=== PATIENT | female | born 1955 | race Caucasian/White ===

== ENCOUNTER 2016-09-23 11:21 | Emergency (ER) | payer BC ==
[~2016-09-23 11:21] MED LIST: ASA325 MG PO; MACROBID100 MG PO; SEROQUEL25 MG PO; SURFAK DPS240 MG PO; TYLENOL DPS325 MG PO
--- NOTE | 2016-09-27 14:46 | ER ---
ADMIT: 09/23/2016 RM/LOC: ER [facility] MR#: [id number] [address] [address] LOLIS HUSSEIN [address] [place] [address] Emergency Room Report SEX: F AGE: 61 : 1955 DATE: 09/23/2016 ADDENDUM: CHIEF COMPLAINT: Right knee pain. HISTORY OF PRESENT ILLNESS: This is a 61-year-old female, who was going to actually an eye clinic. She tripped outside and fell onto her right knee. She was not able to get up on her own and was brought in by EMS to the ER. An x- ray was done of her right knee, it is negative for any fracture over-read by Dr. Yi. Also, did a chest x-ray because she was complaining of right-sided chest pain. X-ray was done and it is negative for any rib fractures or pneumothorax. I am setting her up with a knee mobilizer and crutches, having her follow up Dr. Ventura if her pain does not improve by Sunday. CLINICAL IMPRESSION: 1. Contusion to right knee. 2. Contusion to right side of chest. NAVIN Seymour / Hubert Yi MD / cierral JOB #: [id number] CC: Hubert Yi MD, Attending Physician Raman Ibarra MD, Family Physician
[2016-12-08] MEDS ORDERED: ULTRAM DPS50 MG PO (16:22)
[2017-02-02] MEDS ORDERED: CALTRATE-600 W600 MG PO (08:23)
[2017-02-02] MEDS ORDERED: LAMISIL250 MG PO (08:24)
[2017-02-02] MEDS ORDERED: ZESTORETIC 20/11 TAB PO (08:24)
[2017-02-02] MEDS ORDERED: MULTIPLE VITAM1 EACH PO (08:25)
[2017-02-02] MEDS ORDERED: SENOKOT-S TABL1 EACH PO (08:25)
[2017-02-02] MEDS ORDERED: XARELTO10 MG PO (08:25)
[2017-02-02] MEDS ORDERED: RESTASIS1 EACH OU (08:26)
[2017-02-02] MEDS ORDERED: FLEXERIL DPS5 MG PO (08:27)
[2017-02-02] MEDS ORDERED: FOSAMAX70 MG PO (08:28)
[2017-02-02] MEDS ORDERED: PRILOSEC DPS20 MG PO (08:28)
[2017-02-02] MEDS ORDERED: ZYPREXA10 MG PO (08:28)
[2017-02-02] MEDS ORDERED: MICRO-K DPS8 MEQ PO (08:28)
[2017-02-02] MEDS ORDERED: BENEFIBER1 EAC1 PO (08:29)
[2017-02-02] MEDS ORDERED: MIRALAX PACKET17 GM PO (08:29)
[2017-02-02] MEDS ORDERED: TYLENOL EXTRA500 M1 PO (08:29)
[2017-02-02] MEDS ORDERED: MOBIC15 MG PO (08:29)
[2017-02-02] MEDS ORDERED: COLACE-DPS100 MG PO (08:30)
[2017-02-02] MEDS ORDERED: METAMUCIL SF P3.4 GM PO (08:30)
[2017-02-02] MEDS ORDERED: NORCO 5-325 TA1 EACH PO (08:31)
[2017-02-02] MEDS ORDERED: CALCIUM + VITA1 EACH PO (08:31)
== END 2016-09-23 14:40 | disposition home or self-care (01) ==
LOC: ER 11:21
PROC: 2W3QX1Z Immobilization of Right Lower Leg using Splint (ICD-10-PCS; principal; 2016-09-23)
DX: S20.211A Contusion of right front wall of thorax, initial encounter (principal); S80.01XA Contusion of right knee, initial encounter; Z23 Encounter for immunization; Z88.2 Allergy status to sulfonamides; Z88.8 Allergy status to other drugs, medicaments and biological substances; Z79.899 Other long term (current) drug therapy; I10 Essential (primary) hypertension; F41.9 Anxiety disorder, unspecified; Z90.49 Acquired absence of other specified parts of digestive tract; W01.0XXA Fall on same level from slipping, tripping and stumbling without subsequent striking against object, initial encounter; Y92.481 Parking lot as the place of occurrence of the external cause

== ENCOUNTER → 2016-10-30 | Outpatient (CLI) | payer BC ==
[~2016-10-30] MED LIST changes: +BENEFIBER1 EAC1 PO; +CALCIUM + VITA1 EACH PO; +CALTRATE-600 W600 MG PO; +COLACE-DPS100 MG PO; +FLEXERIL DPS5 MG PO; +FOSAMAX70 MG PO; +LAMISIL250 MG PO; +METAMUCIL SF P3.4 GM PO; +MICRO-K DPS8 MEQ PO; +MIRALAX PACKET17 GM PO; +MOBIC15 MG PO; +MULTIPLE VITAM1 EACH PO; +NORCO 5-325 TA1 EACH PO; +PRILOSEC DPS20 MG PO; +RESTASIS1 EACH OU; +SENOKOT-S TABL1 EACH PO; +TYLENOL EXTRA500 M1 PO; +ULTRAM DPS50 MG PO; +XARELTO10 MG PO; +ZESTORETIC 20/11 TAB PO; +ZYPREXA10 MG PO
== END | disposition home or self-care (01) ==
LOC: PTH.S 09:46
DX: Z01.818 Encounter for other preprocedural examination (principal); M17.12 Unilateral primary osteoarthritis, left knee; I10 Essential (primary) hypertension; R94.31 Abnormal electrocardiogram [ECG] [EKG]; I49.3 Ventricular premature depolarization; I49.9 Cardiac arrhythmia, unspecified; Z79.899 Other long term (current) drug therapy

== ENCOUNTER 2017-01-23 21:28 | Inpatient (IN) | payer BC ==
[~2017-01-23] VITALS: Ht 172.7 cm; Wt 125.0 kg
--- NOTE | ~2017-01-23 | CO ---
ADMIT: 01/23/2017 RM/LOC: 528 [facility] MR#: [id number] [address] [facility] [address] [place] [id number] LOLIS HUSSEIN [address] [place] [address] Consultation Report SEX: F AGE: 61 : 1955 Corrected: 01/24/2017 1122 njv DATE OF CONSULTATION: 01/23/2017 ATTENDING PHYSICIAN: Raman Ibarra CONSULTING PHYSICIAN: Art Santana MD CHIEF COMPLAINT: Bilateral ankle pain. HISTORY OF PRESENT ILLNESS: The patient is a 61-year-old, white female, who is 3 months status post left total knee arthroplasty. She ate dinner tonight and ate about 8:30. Her left knee buckled on her and she landed on both her ankles. She was brought to the ER with complaints of ankle pain and deformity. PAST MEDICAL HISTORY: Significant for multiple medical problems and high blood pressure. She has had again bilateral total knee arthroplasty. The last one was approximately 3 months ago. She is also status post knee arthroscopy, rotator cuff repair, and right total knee arthroplasty. She had history of hypertension, cardiac arrhythmia, GERD, and depression. MEDICATIONS: 1. Terbinafine. 2. Alendronate. 3. Lisinopril. 4. Omeprazole. 5. Olanzapine. 6. Restasis. 7. Multivitamin. 8. Calcium. 9. Potassium. 10.Fiber supplement. ALLERGIES: SULFA AND PHENTERMINE. SOCIAL HISTORY: Noncontributory. PHYSICAL EXAMINATION: HEENT: Normocephalic and atraumatic. CV: Regular rate and rhythm. LUNGS: Benign. ABDOMEN: Benign. NEUROLOGIC: Alert and oriented x3. MUSCULOSKELETAL: The patient has valgus deformity of the ankles standing or sitting slightly medially on the right side. She has good capillary refill of the toes. X-rays showed bilateral severe ankle fracture and dislocations. Appears to be ADMIT: 01/23/2017 RM/LOC: 528 [facility] MR#: [id number] [address] [address] LOLIS HUSSEIN [address] [place] [address] Consultation Report SEX: F AGE: 61 : 1955 trimalleolar fracture with comminution. ASSESSMENT AND PLAN: Bilateral trimalleolar ankle fracture and dislocation. At this point in time, the ER staff gave the patient conscious sedation. We then reduced the ankles that I do the right one 2 to 3 times to get adequate reduction to the point in time where it was just subluxed and the left one was maintained reduction. But, we did take the pressure off any skin. She obviously cannot have surgery at this point in time due to her just eating, but again we have held her without any tenting of the skin in the splints. She understands the risks and benefits of the surgical intervention, which include, but not limited to infection, DVT, arthrofibrosis, nonunion, neurovascular injury, skin necrosis, etc., and desires to proceed. We will have her medical doctor consult of it for preoperative medical H and P. I believe this is Dr. Ibarra. Art Santana MD/ kristofer JOB #: [id number] CC: Raman Ibarra, Attending Physician Raman Ibarra, Family Physician Corrected: 01/24/2017 1122 nj
[~2017-01-23 21:28] MED LIST changes: -BENEFIBER1 EAC1 PO; -CALCIUM + VITA1 EACH PO; -CALTRATE-600 W600 MG PO; -COLACE-DPS100 MG PO; -FLEXERIL DPS5 MG PO; -FOSAMAX70 MG PO; -LAMISIL250 MG PO; -METAMUCIL SF P3.4 GM PO; -MICRO-K DPS8 MEQ PO; -MIRALAX PACKET17 GM PO; -MOBIC15 MG PO; -MULTIPLE VITAM1 EACH PO; -NORCO 5-325 TA1 EACH PO; -PRILOSEC DPS20 MG PO; -RESTASIS1 EACH OU; -SENOKOT-S TABL1 EACH PO; -TYLENOL EXTRA500 M1 PO; -XARELTO10 MG PO; -ZESTORETIC 20/11 TAB PO; -ZYPREXA10 MG PO
--- NOTE | 2017-01-25 14:38 | OR ---
ADMIT: 01/23/2017 RM/LOC: 528 [facility] MR#: [id number] [address] [address] LOLIS HUSSEIN [address] [place] [address] Operative/Delivery Room Report SEX: F AGE: 61 : 1955 SURGERY DATE: 01/24/2017 SURGEON: Art Santana MD PREOPERATIVE DIAGNOSIS: Bilateral trimalleolar ankle fracture dislocation and syndesmotic disruption. POSTOPERATIVE DIAGNOSIS: Bilateral trimalleolar ankle fracture dislocation and syndesmotic disruption. PROCEDURE PERFORMED: Open reduction and internal fixation of right and left bimalleolar ankle fractures and right and left syndesmosis. GENETICS PHYSICIAN: NAVIN Lord ANESTHESIA: General. ESTIMATED BLOOD LOSS: Minimal. FLUIDS: Per anesthetic record. COMPLICATIONS: None. DRAINS: None. TOURNIQUET TIME: 62 minutes on the right and 43 minutes on the left. DISPOSITION: The patient returned to the recovery room in fair condition. INDICATION: The patient sustained bilateral ankle fractures after falling yesterday. She desires surgical intervention. She understood the risks and benefits of procedures and desired to proceed with operation. PROCEDURE IN DETAIL: The patient was taken to the OR, transferred to the OR table, underwent general anesthesia. All bony prominences were well padded. A well-padded tourniquet applied to right lower extremity. Right lower extremity was prepped and draped in the usual sterile fashion, exsanguinated, and tourniquet inflated to 350 mmHg. A 5 inch incision made over the distal fibula through the skin and subcutaneous tissue, down to the lateral fibula which was significantly comminuted and impacted. I was able pull it up the length and get the length by a matching up 2 fracture fragments. I then applied a 6 hole combination plate to the right fibula which was molded using Kisw[place]ili Benders. I secured 2 locking screws distally and 2 locking screws proximally. After using 3.5 locking screws and then squeezed it down first with a 3.5 cortical screw through the 3rd hole. Syndesmosis was still little unstable, thus I placed a syndesmotic screw from the 4th hole using a cancellous screw going across the fibula and the syndesmosis and tibia, this actually squeezing down nice and tight. I then made a 2-1/2 incision over the medial malleolus through the skin and subcutaneous tissue. This was significantly comminuted. The lateral cortex ADMIT: 01/23/2017 RM/LOC: 528 [facility] MR#: [id number] [address] [address] KEENAN LOLIS M [address] [place] [address] Operative/Delivery Room Report SEX: F AGE: 61 : 1955 was onion skinned, opened laterally. I was able to place a guidewire from the most lateral part of the medial malleolus up the medial cortical area, measured it, and then placed a 4.0 partially threaded cannulated screw and washer squeezing down my medial joint space. I then removed the guidewire. I reviewed the construct under C-arm guidance. Everything was in excellent alignment. Wounds were thoroughly irrigated with bacitracin solution and bone defect bone grafted with DBM. I then closed the subcutaneous tissues in 2-0 Vicryl and the skin with maryann medially and laterally. I dressed the wounds with Adaptic, 4x4s, ABD, Webril, and placed in a well-padded posterior fiberglass splint with the ankle in 90 degrees of dorsiflexion, secured with an Osbaldo wrap. Drapes removed and tourniquet let down. I then performed an identical procedure on the left ankle, but I used a 7 hole plate laterally and 2 partially threaded 4.0 cannulated screws and washers medially. Once last splint had been placed, she was reversed from general anesthesia, transferred to the hospital bed and taken back to the recovery room in fair condition. Art Santana MD/ kristofer JOB #: [id number] CC: Raman Ibarra, Attending Physician Raman Ibarra, Family Physician
--- NOTE | 2017-02-02 07:57 | HP ---
ADMIT: 01/23/2017 RM/LOC: 528 [facility] MR#: [id number] [address] [address] LOLIS HUSSEIN [address] [place] [address] History and Physical SEX: F AGE: 61 : 1955 DATE OF SERVICE: 01/24/2017 REASON FOR CONSULTATION: Medical management. HISTORY OF PRESENT ILLNESS: This is a 61-year-old female, patient of Dr. Raman Ibarra with a past medical history significant for hypertension, palpitations, GERD, depression, and morbid obesity, who was admitted with bilateral trimalleolar ankle fractures. The patient states that yesterday evening after dinner, she was walking in her home when her knees buckled and she fell. She instantly had bilateral ankle pain. EMS was called at that time and she was brought to the ER. An x-ray in the ER revealed bilateral trimalleolar ankle fractures and dislocation. Dr. Santana did see her in the emergency room and reduced the fractures. Surgery is planned for noon today. The patient is currently resting comfortably. She only has pain with ankle movement. She denies any recent chest pain, shortness of breath, headache, palpitations, ankle edema, or vision changes. Before her ankle injury yesterday, she was able to get around well despite a recent knee replacement. She has no issues with daily housework or climbing flights of stairs. She does admit that her drives a truck, so she will not be able to care for herself at home initially once discharged here from the hospital. She is interested in the [facility] skilled care nursing unit. PAST MEDICAL HISTORY: 1. Hypertension. 2. Palpitations. 3. GERD. 4. Depression. 5. Obesity. 6. Bilateral knee replacements. PAST SURGICAL HISTORY: 1. Bilateral knee replacement. 2. Rotator cuff repair. MEDICATIONS: 1. Terbinafine 250 mg once daily. 2. Lisinopril/hydrochlorothiazide 20/12.5 mg daily. 3. Alendronate 70 mg every Sunday. 4. Omeprazole 20 mg b.i.d. 5. Olanzapine 10 mg daily. 6. Restasis one drop twice daily. 7. Multivitamin. 8. Calcium and vitamin D daily. 9. Potassium 99 mg daily. 10.Benefiber 2 teaspoons daily. 11.MiraLax daily as needed. 12.Mobic 15 mg daily. 13.Senokot two tabs b.i.d. 14.Ultram 50 mg every 6 hours p.r.n. ADMIT: 01/23/2017 RM/LOC: 528 [facility] MR#: [id number] [address] [address] LOLIS HUSSEIN [facility] [place] [address] History and Physical SEX: F AGE: 61 : 1955 15.Flexeril 5 mg every 8 hours as needed. 16.Tylenol Extra Strength 500 mg at bedtime as needed. ALLERGIES: SULFA AND PHENTERMINE. SOCIAL HISTORY: She denies tobacco, alcohol, or illegal drug use. 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 FAMILY HISTORY: Noncontributory. REVIEW OF SYSTEMS: A 10-point review of systems reviewed and negative other than that stated above in the HPI. PHYSICAL EXAMINATION: VITAL SIGNS: Blood pressure 145/89, pulse 85, respirations 16, temp 97.9, saturating 96% on room air. GENERAL: She is alert and oriented x3. No acute distress. HEART: Regular rate and rhythm. No murmur. LUNGS: Clear to auscultation. ABDOMEN: Obese, soft, nontender, nondistended with positive bowel sounds. EXTREMITIES: Bilateral ankles are wrapped and elevated. LABORATORY DATA: None. X-rays were reviewed. ASSESSMENT AND PLAN: 1. Bilateral ankle fracture. Surgery is scheduled for noon today. 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 2. Hypertension, well controlled. 3. Gastroesophageal reflux disease. 4. Depression. 5. Morbid obesity. 6. History of bilateral total knee replacement. We will plan for CBC, chest x-ray, and EKG before she goes to surgery. She is a low risk candidate for this orthopedic surgery today. We also will plan for fdc care at [place] on discharge. Brittany Marin DO Resident / Raman Ibarra MD / kristofer JOB #: [id number] CC: Raman Ibarar, Attending Physician Raman Ibarra, Family Physician
[2017-02-02] MEDS ORDERED: CALTRATE-600 W600 MG PO (08:23)
[2017-02-02] MEDS ORDERED: ZESTORETIC 20/11 TAB PO (08:24)
[2017-02-02] MEDS ORDERED: LAMISIL250 MG PO (08:24)
[2017-02-02] MEDS ORDERED: XARELTO10 MG PO (08:25)
[2017-02-02] MEDS ORDERED: MULTIPLE VITAM1 EACH PO (08:25)
[2017-02-02] MEDS ORDERED: SENOKOT-S TABL1 EACH PO (08:25)
[2017-02-02] MEDS ORDERED: RESTASIS1 EACH OU (08:26)
[2017-02-02] MEDS ORDERED: FLEXERIL DPS5 MG PO (08:27)
[2017-02-02] MEDS ORDERED: MICRO-K DPS8 MEQ PO (08:28)
[2017-02-02] MEDS ORDERED: PRILOSEC DPS20 MG PO (08:28)
[2017-02-02] MEDS ORDERED: ZYPREXA10 MG PO (08:28)
[2017-02-02] MEDS ORDERED: FOSAMAX70 MG PO (08:28)
[2017-02-02] MEDS ORDERED: TYLENOL EXTRA500 M1 PO (08:29)
[2017-02-02] MEDS ORDERED: BENEFIBER1 EAC1 PO (08:29)
[2017-02-02] MEDS ORDERED: MOBIC15 MG PO (08:29)
[2017-02-02] MEDS ORDERED: MIRALAX PACKET17 GM PO (08:29)
[2017-02-02] MEDS ORDERED: COLACE-DPS100 MG PO (08:30)
[2017-02-02] MEDS ORDERED: METAMUCIL SF P3.4 GM PO (08:30)
[2017-02-02] MEDS ORDERED: NORCO 5-325 TA1 EACH PO (08:31)
[2017-02-02] MEDS ORDERED: CALCIUM + VITA1 EACH PO (08:31)
--- NOTE | 2017-02-06 09:29 | ER ---
ADMIT: 01/23/2017 RM/LOC: ER [facility] MR#: [id number] [address] [address] LOLIS HUSSEIN [address] [place] [address] Emergency Room Report SEX: F AGE: 61 : 1955 DATE: 01/23/2017 ADDENDUM: CHIEF COMPLAINT: Bilateral ankle pain. HISTORY OF PRESENT ILLNESS: This is a 61-year-old female. Her knees gave out and she fell down. She has a trimalleolar fracture of bilateral ankles with dislocation. I did speak with Dr. Santana. He came in to reduce the ankles. Dr. Weeks did the moderate sedation with etomidate. She is going to be admitted by Dr. Santana. Dr. Tan was contacted and he is consulting. CLINICAL IMPRESSION: Trimalleolar fracture and dislocation of bilateral ankle. NAVIN Seymour / Elio Weeks MD / modl JOB #: [id number] CC: Elio Weeks MD, Attending Physician
== END 2017-01-31 09:09 | DRG 493 ==
LOC: ER 21:28 → 5MS 22:50
PROVIDERS: ADMIT Family Medicine
PROC: 0QSJXZZ Reposition Right Fibula, External Approach (ICD-10-PCS; 2017-01-23)
PROC: 0QSGXZZ Reposition Right Tibia, External Approach (ICD-10-PCS; 2017-01-23)
PROC: 0QSKXZZ Reposition Left Fibula, External Approach (ICD-10-PCS; 2017-01-23)
PROC: 0QSHXZZ Reposition Left Tibia, External Approach (ICD-10-PCS; 2017-01-23)
PROC: 0QSJ04Z Reposition Right Fibula with Internal Fixation Device, Open Approach (ICD-10-PCS; principal; 2017-01-24)
PROC: 0QSG04Z Reposition Right Tibia with Internal Fixation Device, Open Approach (ICD-10-PCS; principal; 2017-01-24)
PROC: 0QSK04Z Reposition Left Fibula with Internal Fixation Device, Open Approach (ICD-10-PCS; principal; 2017-01-24)
PROC: 0SSF04Z Reposition Right Ankle Joint with Internal Fixation Device, Open Approach (ICD-10-PCS; principal; 2017-01-24)
PROC: 0QSH04Z Reposition Left Tibia with Internal Fixation Device, Open Approach (ICD-10-PCS; principal; 2017-01-24)
PROC: 0SSG04Z Reposition Left Ankle Joint with Internal Fixation Device, Open Approach (ICD-10-PCS; principal; 2017-01-24)
PROC: 3E0234Z Introduction of Serum, Toxoid and Vaccine into Muscle, Percutaneous Approach (ICD-10-PCS; 2017-01-31)
DX: S82.852A Displaced trimalleolar fracture of left lower leg, initial encounter for closed fracture (principal); Z68.41 Body mass index [BMI] 40.0-44.9, adult; I10 Essential (primary) hypertension; S82.851A Displaced trimalleolar fracture of right lower leg, initial encounter for closed fracture; F32.9 Major depressive disorder, single episode, unspecified; D64.9 Anemia, unspecified; Z23 Encounter for immunization; E66.01 Morbid (severe) obesity due to excess calories; W18.30XA Fall on same level, unspecified, initial encounter; I49.9 Cardiac arrhythmia, unspecified; K21.9 Gastro-esophageal reflux disease without esophagitis; Z96.653 Presence of artificial knee joint, bilateral